=== PATIENT | female | born 2000 | race Caucasian/White ===

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

== ENCOUNTER 2021-05-09 21:11 | Emergency (ER) | payer MEDICAID, SELFPAY ==
[~2021-05-09] VITALS: Ht 160 cm; Wt 86.2 kg
[2021-05-09 21:31] VITALS: BP 131/69
--- NOTE | 2021-05-09 21:39 | NUR ---
PATIENT SENT TO LOBBY
--- NOTE | 2021-05-09 22:15 | NUR ---
PT AMBULATED TO BED 111.
--- NOTE | 2021-05-09 22:43 | NUR ---
NON-ADHERENT PAD APPLIED TO PT LT GLUTE AND SECURED WITH TAPE.
[2021-05-09] MEDS ORDERED: IBUP-2213 PO (22:44)
[2021-05-09] MEDS ORDERED: CEPH-588 PO (22:44)
[2021-05-09] MEDS ORDERED: SULF-59 PO (22:44)
[2021-05-09 22:52] VITALS: BP 131/69
--- NOTE | 2021-05-09 22:52 | NUR ---
Patient discharged with v/s stable. Written and verbal after care instructions given and explained. Patient alert, oriented and verbalized understanding of instructions. Ambulatory with steady gait. All questions addressed prior to discharge. ID band removed. Patient advised to follow up with PMD. Rx of KEFLEX, IBUPROFEN, AND BACTRIM DS TABLET given. Patient educated on indication of medication including possible reaction and side effects. Opportunity to ask questions provided and answered.
--- NOTE | 2021-05-09 22:53 | NUR ---
SEEN BY AUSTIN SANTOS. NO NURSING INTERVENTIONS NEEDED.
== END 2021-05-09 22:52 | disposition home or self-care (01) ==
LOC: MED 21:11
DX: L02.31 Cutaneous abscess of buttock (principal); Z79.899 Other long term (current) drug therapy
CPT/HCPCS: 99283

== ENCOUNTER 2021-05-22 19:53 | Emergency (ER) | payer MEDICAID ==
[~2021-05-22] VITALS: Ht 160 cm; Wt 81.6 kg
[~2021-05-22 19:53] MED LIST: CEPH-588 PO; IBUP-2213 PO; SULF-59 PO
[2021-05-22 20:09] VITALS: BP 120/70
--- NOTE | 2021-05-22 20:12 | NUR ---
TO LOBBY A/W BED AMBULATORY
--- NOTE | 2021-05-22 20:59 | NUR ---
AMBULATORY TO BED
--- NOTE | 2021-05-22 21:33 | NUR ---
20 YO/F BIBS W C/O OF VAGINAL SPOTTING X3 DAYS UPON WIPPING, AND INTERMITTNENT MILD PELVIC PAIN 5/10 CRAMPING/DISCOMFORT X12 DAYS. PATIENT REPORTS SHE IS 6 WEEKS . PATIENT ALSO REPORTS NAUSEA. DENIES VOMITING, OR DIARRHEA. DENIES ABNORMAL VAGINAL OR NIPPLE DISCHARGE. PATIENT SITTING IN BED LOCKED IN LOWEST POSITION W X1 SIDERAIL UP. BREATHING EVEN AND UNLABORED. NAD NOTED, WILL CONTINUE TO MONITOR. PMH:DENIES NKA
[2021-05-22 21:41] LABS: APPEARANCE,URINE CLEAR (CLEAR); BILIRUBIN,URINE NEGATIVE (NEGATIVE); BLOOD, URINE 2+ (NEGATIVE); COLOR,URINE YELLOW (YELLOW); LEUKOCYTE ESTERASE ,URINE NEGATIVE (NEGATIVE); NITRITE, URINE NEGATIVE (NEGATIVE); UGLUCOSE NEGATIVE (NEGATIVE)
--- NOTE | 2021-05-22 21:50 | NUR ---
Dr. Berry examining patient.
--- NOTE | 2021-05-22 21:53 | NUR ---
Female Evs Tech accompanied female patient for Pelvic Exam.
[2021-05-22 22:00] LABS: RBC,URINE 0-5 /HPF (0-5); WBC,URINE NONE SEEN /HPF (0-5)
[2021-05-22 23:06] VITALS: BP 122/74
--- NOTE | 2021-05-22 23:06 | NUR ---
Patient discharged with v/s stable. Written and verbal after care instructions given and explained. Patient verbalized understanding. Ambulatory with steady gait. All questions addressed prior to discharge. Advised to follow up with PMD.
== END 2021-05-22 23:06 | disposition home or self-care (01) ==
LOC: MED 19:53
DX: O20.8 Other hemorrhage in early pregnancy (principal); Z3A.01 Less than 8 weeks gestation of pregnancy
CPT/HCPCS: 36415; 81001; 81025; 84702; 86900; 86901; 99284

== ENCOUNTER 2021-05-27 17:56 | Emergency (ER) | payer MEDICAID ==
[~2021-05-27] VITALS: Ht 160 cm; Wt 93.4 kg
[2021-05-27 18:08] VITALS: BP 132/78
--- NOTE | 2021-05-27 18:35 | NUR ---
20 Y FEMALE WITH C/O VAGINAL BLEEDING X 6 DAYS AND C/O LOWER ABDOMINAL PAIN, LOWER BACK PAIN, HEMATURIA X YESTERDAY. PT STATED SHE IS CURRENTLY 6 WEEKS AND HAS GRADULLY STARTED TO BLEED WORSE OVER THE PAST WEEK. PMH: DENIES OB HX: NKA
--- NOTE | 2021-05-27 18:45 | NUR ---
BLOOD WORK COLLECTED AND HANDED TO CLAMP REMOVERDORIS WOODSON
--- NOTE | 2021-05-27 18:46 | NUR ---
APPROVAL FOR RELEASE OF RECORDS FROM [place] SIGNED BEDSIDE AND PLACED INTO PATIENT CHART
[2021-05-27 19:15] LABS: BASOPHILS # (AUTO) 0.1 K/uL (0.00-0.22); BASOPHILS % (AUTO) 0.7 % (0.0-2.0); EOSINOPHILS # (AUTO) 0.2 K/uL (0-0.4); EOSINOPHILS % (AUTO) 2.4 % (0.0-4.0); HEMATOCRIT 39.1 % (36-48); HEMOGLOBIN 12.9 g/dL (12.0-16.0); LYMPHOCYTES # (AUTO) 2.5 K/uL (2.5-16.5); LYMPHOCYTES % (AUTO) 30.8 % (20.5-51.1); MEAN CORPUSCULAR HEMOGLOBIN 28 pg (27-31); MEAN CORPUSCULAR HGB CONC 33 g/dL (33-37); MONOCYTES # (AUTO) 0.6 K/uL (0.8-1.0); MONOCYTES % (AUTO) 7.8 % (1.7-9.3); NEUTROPHILS # (AUTO) 4.7 K/uL (1.8-7.7); NEUTROPHILS % (AUTO) 58.3 % (42.2-75.2); PLATELET COUNT (AUTO) 312 K/uL (140-450); RED BLOOD CELL COUNT(AUTO) 4.66 MIL/uL (4.20-5.40); RED CELL DISTRIBUTION WIDTH 13.2 % (11.6-13.7); WHITE BLOOD COUNT (AUTO) 8.1 K/uL (4.5-11.0)
--- NOTE | 2021-05-27 19:21 | NUR ---
Received report from Mery DUBOSE for continuity of care
--- NOTE | 2021-05-27 19:21 | NUR ---
Pt report given to GRACY uribe. Transfer of care at this time.
[2021-05-27 19:56] LABS: APPEARANCE,URINE SL CLOUDY (CLEAR); BILIRUBIN,URINE NEGATIVE (NEGATIVE); BLOOD, URINE 3+ (NEGATIVE); COLOR,URINE RED (YELLOW); LEUKOCYTE ESTERASE ,URINE NEGATIVE (NEGATIVE); NITRITE, URINE NEGATIVE (NEGATIVE); UGLUCOSE NEGATIVE (NEGATIVE)
--- NOTE | 2021-05-27 19:59 | NUR ---
Ultrasound at bedside.
--- NOTE | 2021-05-27 20:07 | NUR ---
Boyfriend called about updates on patient.
[2021-05-27 20:31] LABS: WBC,URINE 0-5 /HPF (0-5)
[2021-05-27 20:32] LABS: RBC,URINE 20-50 /HPF (0-5)
[2021-05-27] MEDS ORDERED: ACET-10509 PO (21:20)
--- NOTE | 2021-05-27 21:24 | NUR ---
Called Boyfriend about update and for further updates.
[2021-05-27 21:35] VITALS: BP 118/78
--- NOTE | 2021-05-27 21:35 | NUR ---
Patient discharged with v/s stable. Written and verbal after care instructions given and explained. Patient alert, oriented and verbalized understanding of instructions. Ambulatory with steady gait. All questions addressed prior to discharge. ID band removed. Patient advised to follow up with PMD. Rx of tylenol extra strength tab given. Patient educated on indication of medication including possible reaction and side effects. Opportunity to ask questions provided and answered.
== END 2021-05-27 21:35 | disposition home or self-care (01) ==
LOC: MED 17:56
DX: O03.9 Complete or unspecified spontaneous abortion without complication (principal); Z79.899 Other long term (current) drug therapy
CPT/HCPCS: 36415; 76817; 81001; 81025; 84702; 85025; 99284; Q0092

== ENCOUNTER 2024-04-01 15:27 | Emergency (ER) | payer MEDICAID ==
[~2024-04-01 15:27] MED LIST changes: +ACET-10509 PO
== END 2024-04-01 16:28 | disposition left against medical advice (07) ==
LOC: MED 15:27
DX: K92.1 Melena (principal); Z53.21 Procedure and treatment not carried out due to patient leaving prior to being seen by health care provider